=== PATIENT | female | born 1980 | race Caucasian/White ===

== ENCOUNTER → 2019-06-04 | Outpatient (CLI) | payer OTHER ==
[2019-06-04 12:22] VITALS: BP 121/69; PULSE 68; RESP 16
--- NOTE | 2019-06-05 14:11 | P.PAINCN ---
History of Present Illness - Reason for Consult Consult date: 06/04/19 - History of Present Illness This is a 38-year-old patient who presents for evaluation of chronic pain in bilateral low back radiating to bilateral posterior thighs, not past the knees, associated with bilateral lower extremity numbness without weakness. She has had low back pain for approximately 20 years, however 3 years ago she strained her back while transferring her (who has ALS and she is the primary caregiver) and since then also notes bilateral lower extremity pain. The pain has stayed about the same since then. Patient has been taking medications from primary care physician including naproxen and magnesium oxide with some relief. Patient denies adverse drug effects from medications. Patient also denies new- onset weakness, bowel/bladder incontinence, or any other signs or symptoms of cauda equina syndrome. There are no signs of acute intoxication, and no indications of medication diversion or overuse. Patient notes that pain worsens significantly with lying down or sitting for lo ng periods of time, and improves with soaking in bathtub, marijuana use and medication. Pain is rated as ranging from 2-10 out of 10, rated as 7 on 10 today. Patient HAS NOT had surgery. Patient HAS NOT had injections previously. Patient HAS had physical therapy about 3 years ago as well as chiropractic therapy with no benefit. In addition to above, 13-point review of systems is also negative for chest pain, shortness of breath, changes in vision, changes in hearing, new onset weakness, abdominal pain, diarrhea, extreme fatigue, malaise, fever, skin changes, homicidal or suicidal ideation, or bowel or bladder incontinence. Physical exam: Vital Signs: Reviewed in EMR GENERAL: Well appearing, in no acute distress PSYCH: Mood and affect is appropriate. Awake, alert, and oriented SKIN: Skin color, texture, turgor normal, no rashes or lesions HEENT: Normocephalic, atraumatic. EOM intact CV: No pedal edema RESP: Respirations are unlabored, no audible wheezing GI: Abdomen non-distended MUSCULOSKELETAL: Bilateral lower extremity strength is normal and symmetric. No atrophy or tone abnormalities are noted. Lumbar spine: Straight leg raising in the sitting position is negative for rad icular pain. Tenderness to palpation over the lumbar spine and paraspinous muscles. Positive for pain with facet loading and back extension/rotation bilaterally. Buttocks: No pain to palpation over the PSIS, Vane test is bilaterally Extremities: Peripheral joint ROM is full and pain free without obvious instability or laxity in all four extremities. No edema or skin discolorations noted. Gait: Gait is normal NEUR: Bilateral lower extremity coordination and muscle stretch reflexes are physiologic and symmetric. Negative clonus. No loss of sensation is noted. Cranial nerves are grossly intact. Imaging: MRI lumbar spine done at [facility] on 04/30/2019 shows a posterior disc bulge with a tear of annulus at L5-S1 resulting in mild to moderate left and mild right neuroforaminal narrowing. Scattered spondylotic degenerative changes noted. Assessment: 1. Lumbar spondylosis without myelopathy Plan: 1. Explanation: Opioid and psychological risk scores were reviewed. Diagnoses, prognoses, and multiple treatment options including but not limited to physical therapy, interventional therapies, adjuvant medical therapies, narcotic medication therapies, and surgery were discussed with the patient and all questions were answered to the patient's satisfaction. 2. Opioid agreement: None 3. Counseling: The patient was counseled extensively on SMOKING CESSATION (marijuana), BODY MASS INDEX, EXERCISE. Specifically, the patient was instructed regarding the importance of smoking cessation, weight control, and exercise in the context of both chronic pain and overall health. 4. Procedures: Will schedule bilateral lumbar medial branch blocks at L3, L4, L5 5. Consultations: None 6. Investigations: MRI reviewed 7. Medications: Per PCP 8. Disposition: For above-mentioned procedure Past Medical History Additional Past Medical History / Comment(s): ANEMIA History of Any Multi-Drug Resistant Organisms: None Reported Past Surgical History: Orthopedic Surgery, Tubal Ligation Additional Past Surgical History / Comment(s): GREAT TOE SX. URTHERAL STRETCHING CHILD Past Anesthesia/Blood Transfusion Reactions: No Reported Reaction Past Psychological History: No Psychological Hx Reported Smoking Status: Former smoker Past Alcohol Use History: Occasional Additional Past Alcohol Use History / Comment(s): QUIT SMOKING 2016 Past Drug Use History: Marijuana Additional Drug Use History / Comment(s): SMOKES MARIJUANA DAILY FOR PAIN - Past Family History Mother Family Medical History: No Reported History Medications and Allergies Home Medications Medication Instructions Recorded Confirmed Type Docusate [Colace] 100 mg PO DAILY 06/02/19 06/04/19 History Ferrous Sulfate [Feosol] 325 mg PO DAILY 06/02/19 06/04/19 History Magnesium Oxide [Mag-Ox] 400 mg PO DAILY 06/02/19 06/04/19 History Naproxen [Naprosyn] 500 mg PO Q12HR 06/02/19 06/04/19 History Allergies Allergy/AdvReac Type Severity Reaction Status Date / Time aspirin Allergy Unknown Verified 06/04/19 12:17 Childhood morphine Allergy Swelling Verified 06/04/19 12:17 PQRS Measure Charge Sheet Measure #130: Documentation of Current Meds in Medical Chart: Patient's medications documented in chart Measure #226: Tobacco Use: Screen & Cessation Intervention: Pt not a tobacco user Measure #111: Pneumonia Vaccination: Pneumococcal vaccine NOT administered or previously given Measure #47: Advance Care Plan: Advance care planning discussed & documented, pt chose/unable to give Measure #412: Opioid Treatment Agreement: No documentation of signed opioid treatment agreement Measure #317: Preventitive Care & Scrn High Bld Press & F/U: Normal blood pressure, f/u not required Measure #128: Body Mass Index (BMI) Screening & Follow-up: BMI documented ABOVE normal parameters - f/u documented Measure #131: Pain Assessment & Follow-up: Pain positive & plan documented, Follow-up scheduled Measure #431: Unhealthy Alcohol Use Preventative Care & Scrn: Patient not identified as an unhealthy alcohol user PQRS Narrative: Smoking Status Former smoker Blood Pressure 121/69 Pain Intensity [Lower Back] 7 Scale Used Numeric (1 - 10) Hx Alcohol Use (MH) Yes Home Medications: Ambulatory Orders Docusate [Colace] 100 mg PO DAILY 06/02/19 Ferrous Sulfate [Feosol] 325 mg PO DAILY 06/02/19 Magnesium Oxide [Mag-Ox] 400 mg PO DAILY 06/02/19 Naproxen [Naprosyn] 500 mg PO Q12HR 06/02/19
== END | disposition home or self-care (01) ==
LOC: PNWHC3 11:14
PROVIDERS: ATTEND Anesthesiology
DX: M47.816 Spondylosis without myelopathy or radiculopathy, lumbar region (principal); Z87.891 Personal history of nicotine dependence; Z79.891 Long term (current) use of opiate analgesic; Z79.899 Other long term (current) drug therapy
CPT/HCPCS: 99201

== ENCOUNTER 2019-06-17 07:10 | Day surgery (SDC) | payer OTHER ==
[2019-06-12 11:52] VITALS: BMI 41.1
[~2019-06-17 07:10] MED LIST: LACTATED RINGERS 1,000 ML IV SCH
[2019-06-17 07:45] VITALS: TEMP 97.6
[2019-06-17] MEDS ORDERED: IV FLUID CONTINUATION 1,000 ML IV ONE (09:14)
--- NOTE | 2019-06-17 09:27 | FL ---
EXAMINATION TYPE: FL guided pain mgmt statistic DATE OF EXAM: 06/17/2019 CLINICAL HISTORY: Low back pain. TECHNIQUE: Fluoroscopy. COMPARISON: None. FINDINGS: Fluoroscopic guidance was provided during pain relief procedure performed by Dr. Jorgensen. A t otal of 12 seconds of fluoroscopic time was utilized during the procedure and 3 spot images are acqui red. Images acquired shows needle localization of the lumbosacral junction. IMPRESSION: As Above.
[2019-06-17 09:37] VITALS: BP 130/83; PULSE 92; RESP 18
--- NOTE | 2019-06-17 09:43 | P.PCN ---
Date of Procedure: 06/17/19 Procedure(s) Performed: PREOPERATIVE DIAGNOSIS : Lumbar spondylosis with Facet Arthropathy without myelopathy POSTOPERATIVE DIAGNOSIS: same PROCEDURE: First Diagnostic lumbar medial branch block with fluoroscopy at L3, L4, L5 lateral which covers facets L4-5 and L5-S1 ANESTHESIA: Local anesthetic; moderate IV sedation with Versed 2 mg Fluoroscopy was used for the procedure and images were saved in the radiology portion of the chart. Surgeon: Jenna Jorgensen MD PROCEDURE INDICATION: Lumbar back pain without radiculopathy, not responsive to conservative management. PROCEDURE DESCRIPTION: the patient was seen and identified in the preop holding area , risks and benefits and possible complications of the procedure and alternatives were discussed with the patient, and the patient agreed to proceed with the procedure and signed the consent . IV was started , vital signs were monitored during the procedure and fluoroscopy was used to maximize the benefit and accuracy of the needle placement, and sedation was given to decrease patient anxiety. Patient was taken to the procedure room and placed in prone position. The lumbar region was prepped using chlorhexidineX-2. Under strict sterile technique using AP fluoroscopy the bilateral sacral ala were identified and using ipsilateral oblique fluoroscopy ,the junction of the transverse process and the superior articulating process of the L4, L5 vertebra which corresponds to the fluoroscopy image of the eye of the Michael dog for the medial branches were identified. Subsequently, after local infiltration of skin with lidocaine 1% 0.2 mL at each level , a 22-gauge 5 inch Quincke-type needle was placed at the junction of the base of the transverse process and the superior articular process at the appropriate level as well as the sacral ala, and the needle was advanced until the periosteum contacted, needle placement confirmed with AP and oblique fluoroscopy, 0.2 mL of Isovue 200 per level was injected which revealed no vascular uptake and after negative aspiration, 0.5 mL of ropivacaine 0.5% was injected at each level and the needle subsequently removed . At the end of the procedure and the needles were removed and a bandage applied after the skin was cleaned. The patient was taken to recovery room in stable con dition and monitors in the recovery room for 20-30 minutes and discharged home in stable condition after discharge criteria met and patient will follow up in clinic in 2 weeks EBL: Minimal COMPLICATION: None.
== END 2019-06-17 10:03 | disposition home or self-care (01) ==
LOC: ORPAIN 07:10
PROVIDERS: ATTEND Anesthesiology
DX: M47.816 Spondylosis without myelopathy or radiculopathy, lumbar region (principal); M51.27 Other intervertebral disc displacement, lumbosacral region; M48.07 Spinal stenosis, lumbosacral region; D64.9 Anemia, unspecified; Z87.891 Personal history of nicotine dependence; Z79.1 Long term (current) use of non-steroidal anti-inflammatories (NSAID); Z79.899 Other long term (current) drug therapy; Z88.6 Allergy status to analgesic agent; Z88.5 Allergy status to narcotic agent; Z98.51 Tubal ligation status
CPT/HCPCS: 64493; 64494; 81025; J2250; Q9966; 99152

== ENCOUNTER 2019-07-01 06:13 | Day surgery (SDC) | payer OTHER ==
[2019-06-26 11:35] VITALS: BMI 41.5
[2019-07-01 06:37] VITALS: TEMP 97.8
[2019-07-01] MEDS ORDERED: LIDOCAINE 1% 20 ML VIAL (10MG/ML) FOR IV START INTRADERMA ONE (06:44)
[2019-07-01] MEDS ORDERED: LACTATED RINGERS 1,000 ML IV ONE ×2 (06:44→08:12)
--- NOTE | 2019-07-01 08:11 | P.PCN ---
Date of Procedure: 07/01/19 Procedure(s) Performed: PREOPERATIVE DIAGNOSIS : Lumbar spondylosis with Facet Arthropathy without myelopathy POSTOPERATIVE DIAGNOSIS: same PROCEDURE: Diagnostic lumbar medial branch block with fluoroscopy at bilateral L3, L4 medial branches, bilateral dorsal dorsal rami of L5 ANESTHESIA: Moderate sedation with 2 mg of Versed and local anesthesia Surgeon: Sohail Best MD PROCEDURE INDICATION: Positive first lumbar medial branch block PROCEDURE DESCRIPTION: the patient was seen and identified in the preop holding area , risks and benefits and possible complications of the procedure and alternative were discussed with the patient, and the patient agreed to proceed with the procedure and signed the consent IV was started and vital signs monitored during the procedure and fluoroscopy was used to maximize the benefit and accuracy of the needle placement, and sedation was given to decrease patient anxiety, patient was taken to the procedure room and placed in prone position vital signs monitored in the back prepped. Under strict sterile technique using a right oblique fluoroscopy ,the junction of the transverse process and the superior articulating process of the bilateral L3- 4 , L4- 5, and L5-S1 vertebra which corresponding to the fluoroscopy image of the eye of the Michael dog on the block side for the medial branches and subsequently , after local infiltration of skin and subcutaneous tissues with lidocaine 1% one mL at each level ,then one 22-gauge 5 inch Quincke-type needles was placed at the junction of the base of the transverse process and the superior articular process at the appropriate level, and the needle was advanced until the periosteum contacted, needle placement confirmed with AP oblique and lateral view and after appropriate needle placement confirmed, and after negative aspiration, 0.5 mL of Marcaine 0.5% in divided doses was injected at each level and the needle subsequently removed . At the end of the procedure and the needles removed and a bandage applied after the skin was cleaned the cleaning solution patient taken to recovery room in stable condition and monitors in the recovery room for 20-30 minutes and discharged home in stable condition after discharge criteria met and patient will follow up with the pain clinic in 2-4 weeks to determine if she is an RFA candidate. EBL: Minimal COMPLICATION: None.
[2019-07-01 08:14] VITALS: RESP 16
[2019-07-01 08:30] VITALS: BP 106/79; PULSE 83
--- NOTE | 2019-07-01 09:00 | FL ---
EXAMINATION TYPE: FL guided pain mgmt statistic DATE OF EXAM: 07/01/2019 CLINICAL HISTORY: Low back pain. TECHNIQUE: Fluoroscopy. COMPARISON: None. FINDINGS: Fluoroscopic guidance was provided during pain relief procedure performed by Dr. Best . A total of 17 seconds of fluoroscopic time was utilized during the procedure and 4 spot images are acquired. Images acquired shows needle localization at multiple levels of the lumbar spine. IMPRESSION: As Above.
== END 2019-07-01 08:44 | disposition home or self-care (01) ==
LOC: ORPAIN 06:13
PROVIDERS: ATTEND Student in an Organized Health Care Education/Training Program
DX: M47.26 Other spondylosis with radiculopathy, lumbar region (principal); D64.9 Anemia, unspecified; Z87.891 Personal history of nicotine dependence; Z79.1 Long term (current) use of non-steroidal anti-inflammatories (NSAID); Z88.6 Allergy status to analgesic agent; Z88.5 Allergy status to narcotic agent; Z98.51 Tubal ligation status
CPT/HCPCS: 64493; 64494; 81025; J2250

== ENCOUNTER → 2019-08-04 | Outpatient (CLI) | payer OTHER ==
[2019-08-04 14:12] VITALS: BP 157/102; PULSE 83; RESP 15
--- NOTE | 2019-08-06 05:05 | P.PAINPG ---
Subjective Progress Note Date: 08/04/19 This is a follow-up visit for this 38-year-old adult female , who was diagnosed with lumbar spondylosis with lumbar facet arthropathy, recently we have begun to diagnostic medial branch block lumbar area at L3, L4, L5, x2 patient reported that her pain before the first diagnostic medial branch block was 8/10 and it dropped to 0-2/10 after the block , and the pain relief was only for short-term, and the second diagnostic medial branch block the pain before the block was 8/10 dropped to 0/10 , patient denies any motor or sensory deficit Objective - Vital Signs Vital signs: Vital Signs Temp Pulse 83 08/04/19 13:43 Resp 15 08/04/19 13:43 BP 157/102 08/04/19 13:43 Pulse Ox - Exam Physical Examinations : -Constitutiona : Cooperative , not in acute distress . -HEENT : nech : supple , no Lymphadenopathy , normal thyroid size . eyes : no ptosis , no icterus, no photophobia - neurologic : Cranial nerve II to XII intact , no focal neurological deffecit . -psychatric : alert , oriented X 3 , appropriate affect , intact judgment and insight . -Lymphatic : no Lymphadenopathy . - musculoskeltal : Lumber spine moter stegnth lower extremities ,thigh and legs 5/5 Right side , 5/5 Left side deep tendon reflexes : normal Knee Jerk , normal ankle Jerk positive lumber facet Loading Test Assessment and Plan Plan: Assessment and plan= lumbar spondylosis with lumbar facet arthropathy, status post diagnostic medial branch block lumbar areax2 patient had positive results from both of them, she would be good candidate to have radiofrequency thermocoagulation of the lumbar Braasch, she will be scheduled to have aren't a of L3, L4, L5, (2 denervate the facet joint of L4-L5 and L5-S1 ) we'll do the right side first then the left side , procedure risks and benefits and alternatives discussed with the patient she agreed with the procedure Time with Patient: Less than 30 PQRS Measure Charge Sheet Measure #130: Documentation of Current Meds in Medical Chart: Patient's medications documented in chart Measure #226: Tobacco Use: Screen & Cessation Intervention: Pt screened for tobacco use AND intervention given Measure #111: Pneumonia Vaccination: Pneumococcal vaccine NOT administered or previously given Measure #47: Advance Care Plan: Advance care planning discussed & documented, pt chose/unable to give Measure #412: Opioid Treatment Agreement: No documentation of signed opioid treatment agreement Measure #408: Opioid Therapy Follow-up Evaluation: Patient had NO f/u eval minimum every 3 months during opioid therapy Measure #317: Preventitive Care & Scrn High Bld Press & F/U: Pre-hypertensive or hypertensive BP documented, pt will f/u with PCP Measure #128: Body Mass Index (BMI) Screening & Follow-up: BMI documented ABOVE normal parameters - f/u documented Measure #131: Pain Assessment & Follow-up: Pain positive & plan documented, Follow-up scheduled Measure #431: Unhealthy Alcohol Use Preventative Care & Scrn: Patient not identified as an unhealthy alcohol user PQRS Narrative: Smoking Status Current some day smoker Blood Pressure 157/102 Pain Intensity [Lower Back] 5 Scale Used Numeric (1 - 10) Hx Alcohol Use (MH) Yes Home Medications: Ambulatory Orders Docusate [Colace] 100 mg PO DAILY 06/02/19 Ferrous Sulfate [Feosol] 325 mg PO DAILY 06/02/19 Magnesium Oxide [Mag-Ox] 400 mg PO DAILY 06/02/19 Naproxen [Naprosyn] 500 mg PO Q12HR 06/02/19 Controlled Substance Measures - Controlled Substance Measures Is patient prescribed a controlled substance at discharge?: No
== END | disposition home or self-care (01) ==
LOC: PNWHC3 13:29
PROVIDERS: ATTEND Specialist
DX: M47.816 Spondylosis without myelopathy or radiculopathy, lumbar region (principal); M46.96 Unspecified inflammatory spondylopathy, lumbar region; F17.200 Nicotine dependence, unspecified, uncomplicated; Z98.890 Other specified postprocedural states; Z79.1 Long term (current) use of non-steroidal anti-inflammatories (NSAID); Z79.899 Other long term (current) drug therapy
CPT/HCPCS: 99211

== ENCOUNTER 2019-08-11 09:05 | Day surgery (SDC) | payer OTHER ==
[2019-08-07 15:53] VITALS: BMI 41.1
[2019-08-11] MEDS ORDERED: LIDOCAINE 1% 20 ML VIAL (10MG/ML) FOR IV START INTRADERMA ONE (09:38)
[2019-08-11 09:42] VITALS: RESP 16; TEMP 97.3
--- NOTE | 2019-08-11 10:31 | P.PCN ---
Date of Procedure: 08/11/19 Procedure(s) Performed: OPERATION: Radiofrequency ablation of the medial branch lumbar area at [] side, L3 medial branch, L4 medial branch, and dorsal rami of 5 levels under fluoroscopic guidance. PREOPERATIVE DIAGNOSES: 1. Lumbar facet arthropathy. POSTOPERATIVE DIAGNOSES: 1. Lumbar facet arthropathy. COMPLICATIONS: None. PHYSICIAN: Sohail Best MD ANESTHESIA: moderate sedation (2 mg versed and 100 mcg of fentanyl) with local infiltration. CONDITION: Stable. INDICATION FOR THE PROCEDURE: This is a 38-year-old female with a history of low back pain. Procedure, risks and benefits discussed with the patient who agreed with proceeding. Patient taken to the operating room, placed in prone position. All standard monitors applied to the patient. Then after induction of anesthesia, back prepped with Betadine 3 times. Then under fluoroscopic guidance we used 1% lidocaine 5 mL for skin and subcutaneous tissue infiltrations, Then after that, 18-gauge radiofrequency 150 mm active-tip needles, 3 needles used, each one of them placed at the junction of the base of the transverse process and the superior articulating process of the right side at, L3-4, L4-5 and L5-S1 levels. Needle placement confirmed with AP and oblique and lateral views. Then after appropriate needle placement confirmed, we checked for the motor stimulation at 2.5 v, which was positive for localized contractions in the lumbar area and there were no contractions in the lower extremities. Then 1 cc of 4% lidocaine was injected into each needle. Then after that, the radiofrequency done at 80 degrees Centigrade for 90 seconds at each level. The needles were subsequently removed. Images were saved to the chart. Patient tolerated the procedure well without any complication and will follow the up for the same procedure on the left side. Comments: 150 mm [place] were used.
[2019-08-11] MEDS ORDERED: IV FLUID CONTINUATION 1,000 ML IV ONE (10:38)
[2019-08-11 11:10] VITALS: BP 135/85; PULSE 67
--- NOTE | 2019-08-11 14:35 | FL ---
EXAMINATION TYPE: FL guided pain mgmt statistic DATE OF EXAM: 08/11/2019 FLUOROSCOPY Fluoroscopy time of 4 seconds was used during right-sided lumbar radiofrequency ablation. 4 image/s document/s the procedure.
== END 2019-08-11 11:19 | disposition home or self-care (01) ==
LOC: ORPAIN 09:05
PROVIDERS: ATTEND Student in an Organized Health Care Education/Training Program
DX: M46.96 Unspecified inflammatory spondylopathy, lumbar region (principal); F17.200 Nicotine dependence, unspecified, uncomplicated; Z79.1 Long term (current) use of non-steroidal anti-inflammatories (NSAID); Z79.899 Other long term (current) drug therapy
CPT/HCPCS: 81025; 64635; 64636; J2250; J3010; 99152

== ENCOUNTER 2019-09-07 07:36 | Day surgery (SDC) | payer OTHER ==
[2019-09-03 12:51] VITALS: BMI 25.7
[2019-09-07 08:17] VITALS: TEMP 97.4
[2019-09-07] MEDS ORDERED: LIDOCAINE 1% 20 ML VIAL (10MG/ML) FOR IV START INTRADERMA ONE (08:21)
[2019-09-07] MEDS ORDERED: LACTATED RINGERS 1,000 ML IV ONE (08:21)
[2019-09-07] MEDS ORDERED: IV FLUID CONTINUATION 550 ML IV ONE (09:40)
--- NOTE | 2019-09-07 09:44 | P.PCN ---
Date of Procedure: 09/07/19 Description of Procedure: OPERATION: Radiofrequency ablation of the medial branch lumbar area at Left side L4-5 and L5-S1 levels under fluoroscopic guidance. PREOPERATIVE DIAGNOSES: 1. Lumbar facet arthropathy. 2. Lumbar degenerative disc disease. POSTOPERATIVE DIAGNOSES: 1. Lumbar facet arthropathy. 2. Lumbar degenerative disc disease. COMPLICATIONS: None. ANESTHESIA: IV sedation 2mg Versed and 100mcq Fentanyl with local infiltration. CONDITION: Stable. INDICATION FOR THE PROCEDURE: 38-year-old female who had 80% relief with lumbar medial branch blocks at L4-L5 and L5-S1 facet joints. Patient is a good candidate for radiofrequency ablation of the medial branch. Procedure, risks and benefits discussed with the patient who agreed with proceeding. Patient taken to the operating room, placed in prone position. All standard monitors applied to the patient. Then after induction of anesthesia, back prepped with ChloraPrep. Then under fluoroscopic guidance we used 1% lidocaine 8 mL for skin and subcutaneous tissue infiltrations, approximately 2 mL at each level. Then after that, 18-gauge radiofrequency active-tip needles, 3 needles used, each one of them placed at the junction of the base of the transverse process and the superior articulating process of the left side at L4-5 and L5-S1 levels. Needle placement confirmed with AP and oblique and lateral views. Then after appropriate needle placement confirmed, we checked for the motor stimulation at 2.5 v, which was positive for localized contractions in the lumbar area and there were no contractions in the lower extremities, and only appropriate multifidus. Then after that, we checked for the sensory stimulation, which was positive at all levels at less than 0.5 v. 1 mL of 1% lidocaine was then injected through each needle. Then after that, the radiofrequency done at 80 degrees Centigrade for 90 seconds at each level. 2 nichols were performed. Then before the needles taken out, 0.5% Marcaine 6 mL and 40 mg of Kenalog mixed together and 1.5 mL injected at each level after negative aspiration. Patient tolerated the procedure well without any complication and will follow up with the pain clinic in few weeks.
[2019-09-07] MEDS ORDERED: LACTATED RINGERS 1,000 ML IV SCH (09:45)
[2019-09-07 09:50] VITALS: RESP 18
[2019-09-07 10:00] VITALS: BP 132/79; PULSE 86
--- NOTE | 2019-09-07 11:48 | FL ---
Fluoroscopy INDICATION: Pain FINDINGS: Fluoroscopy time: 17 seconds. Images obtained: 3. IMPRESSIONS: 1. Documentation of fluoroscopy.
== END 2019-09-07 11:00 | disposition home or self-care (01) ==
LOC: ORPAIN 07:36
PROVIDERS: ATTEND Anesthesiology
DX: M51.36 Other intervertebral disc degeneration, lumbar region (principal); M47.816 Spondylosis without myelopathy or radiculopathy, lumbar region; Z88.6 Allergy status to analgesic agent; Z88.5 Allergy status to narcotic agent
CPT/HCPCS: 81025; 64635; 64636; J2250; J3301; J3010; 99152